=== PATIENT | female | born 2000 | race Caucasian/White ===

== ENCOUNTER 2023-09-03 22:33 | Emergency (ER) | payer SELFPAY ==
[2023-09-04] MEDS: lidocaine 1% 20 ML MDV SUBQ ONE (00:53)
--- NOTE | 2023-09-04 01:10 | ED Physician Documentation ---
PD HPI UPPER EXT INJURY - Stated complaint Stated Complaint: RT HAND LAC - Chief complaint Chief Complaint: Laceration - History obtained from History obtained from: Patient - Additonal information Additional information: Patient comes to the emergency department chief complaint of right index fingertip laceration after a glass bowl broke in her hands. She states her last tetanus shot was within the last 10 years. No other complaints at this time. PD PAST MEDICAL HISTORY - Past Medical History Past Medical History: No - Past Surgical History Past Surgical History: No - Present Medications Home Medications: Ambulatory Orders Medication Instructions Recorded Confirmed No Known Home Medications 09/03/23 09/03/23 - Allergies Allergies/Adverse Reactions: Allergies Allergy/AdvReac Type Severity Reaction Status Date / Time No Known Drug Allergies Allergy Verified 09/03/23 22:48 - Social History Does the pt smoke?: No Smoking Status: Never smoker Does the pt drink ETOH?: No Does the pt have substance abuse?: No - Immunizations Immunizations are current?: Yes - POLST Patient has POLST: No PD ED PE NORMAL - Vitals Vital signs reviewed: Yes - General General: Alert and oriented X 3, No acute distress, Well developed/nourished - HEENT HEENT: Atraumatic, EOMI, Moist mucous membranes - Neck Neck: Supple, no meningeal sign - Cardiac Cardiac: Strong equal pulses - Respiratory Respiratory: No respiratory distress - Derm Derm: Normal color, Warm and dry, No rash, Other (Flap laceration of right index fingertip with mild duskiness of the flap. Approximately 3 mm thickness of flesh associated with flap. No nailbed involvement.) - Extremities Extremities: No deformity, Other (Full range of motion right index finger) - Neuro Neuro: Alert and oriented X 3 - Psych Psych: Normal mood, Normal affect Results - Vitals Vitals: Vital Signs - 24 hr 09/03/23 09/04/23 22:44 01:11 Temperature 36.6 C Heart Rate 65 88 Respiratory 18 16 Rate Blood Pressure 130/85 H 128/81 H O2 Saturation 98 99 Oxygen O2 Source Room air Procedures - Laceration (location) Right index fingertip Length in cm: 1.2 Wound type: Flap, Into subcut fat, Clean Neurovascular status: Sensory intact, Motor intact, Vascular intact Wound preparation: Irrigated copiously NS, To the base Skin layer closure: Dermabond, Steri strips (The flap was glued down with Dermabond and then Steri-Strips were placed over the top and around the flap to help secure it. A dressing was placed over this.) PD Medical Decision Making - ED course Complexity details: considered differential, d/w patient, d/w family ED course: The patient's laceration was repaired as above. She is up-to-date on tetanus and we have discussed wound care at home. I have discussed with the patient, specifically, that the flap may not survive and if so, it will dry up and fall off and new skin will grow over the floor of the wound. The patient expresses understanding. We have discussed the usual indications for return. Departure - Departure Disposition: 01 Home, Self Care Clinical Impression: Laceration Condition: Stable Instructions: ED Laceration Ext Skin Glue Comments: Your laceration has been repaired with skin glue and Steri-Strips tonight. You should keep Steri-Strips on the fingertip for at least the next 4 days. If they are still firmly adhesed to your finger, then leave them on for few days longer. If they are starting to peel off, you may gently remove them and see how the fingertip is looking. If it still appears moist and there are significant edges that could catch, then it is probably best to cover the flap with a fresh set of Steri-Strips. Once the flap is firmly adhesed to your finger, you may leave it open to air if you wish. Judging by the amount of flesh involved with the flap, I would expect the flap to revitalize and heal back to the fingertip. Occasionally, however, if there is not quite enough for or vessels, then the flap may just off and new skin will grow over the wound. In general, these lacerations rarely get infected, but if you begin to notice redness or swelling spreading progressively away from the wound, please have the wound rechecked. Forms: PCP List Discharge Date/Time: 09/04/23 01:11
[2023-09-04 01:14] VITALS: BP 128/81; O2SAT 99
== END 2023-09-04 01:11 | disposition home or self-care (01) ==
LOC: ED 22:33
DX: S61.210A Laceration without foreign body of right index finger without damage to nail, initial encounter (principal); W25.XXXA Contact with sharp glass, initial encounter
CPT/HCPCS: 12001; 99283